=== PATIENT | female | born 1945 | race Caucasian/White ===

== ENCOUNTER 2019-11-10 08:47 | Emergency (ER) | payer MEDICARE ==
[~2019-11-10] VITALS: Ht 157.4 cm; Wt 65.8 kg
[~2019-11-10 08:47] MED LIST: ZANTAC150 MG PO
== END 2019-11-10 13:42 | disposition home or self-care (01) ==
LOC: ED 08:47
DX: S43.005A Unspecified dislocation of left shoulder joint, initial encounter (principal); X58.XXXA Exposure to other specified factors, initial encounter; Y93.89 Activity, other specified; Y92.89 Other specified places as the place of occurrence of the external cause; Y99.8 Other external cause status